=== PATIENT | female | born 1955 | race Caucasian/White ===

== ENCOUNTER 2018-10-07 13:31 | Emergency (ER) | payer OTHER, MEDICAID ==
--- NOTE | 2018-10-07 13:38 | EDPHY ---
H & P Time Seen by Provider: 10/07/18 13:37 HPI/ROS: CHIEF COMPLAINT: Anterior neck discomfort HISTORY OF PRESENT ILLNESS: This is a 63-year-old female with a complex medical history that includes chronic demyelinating inflammatory polyneuropathy for which she is receiving IV IG infusions. 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 She receives IVIG every 3 weeks. She received her 6th infusion yesterday. She typically experiences flushing, sometimes jaw pain related similar to her TMJ, and leg cramps with and after these infusions. However, last evening she noted throat pain and some pain in her anterior chest. Both of these sensations are located in the region of her sternal notch. She has not had chest pain. She does feel that she is somewhat short of breath but points out that this has been longstanding. She has been short of breath with exertion for some time and has been undergoing an outpatient evaluation of this problem. To date, her evaluation has included a CT scan of the chest (without IV contrast per her report) that was performed last month, pulmonary function testing, bilateral lower extremity ultrasounds performed last week, and referral to a economic specialist (she has not yet seen the economic specialist). She has not had chest pain. She has no pain with deep breathing. She denies cough or fever. REVIEW OF SYSTEMS: A ten system review of systems was performed and is negative with the exception of the items mentioned in the HPI. Past medical history: 1. 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 Lichen sclerosis 5. Graves disease in remission 6. Anxiety 7. Sleep apnea on CPAP 8. Migraines 10. Bernadette Danlos 11. PTSD 12. Chronic regional pain syndrome This past medical history is provided from the patient and differes somewhat from what is found in her records. Her records state that she has scleroderma, which she denies. Her records also mention dissociative identity disorder. She states that she has PTSD and anxiety but does not mention dissociated of identity disorder. Past surgical history: Cataract surgery Family history: Bernadette Danlos Social history: She is here with her daughter. She does not use tobacco or alcohol. She is disabled. She is . General Appearance: Alert. Vital signs reviewed. Blood pressure 134/74. Eyes: Pupils equal and round, no conjunctival injection, no discharge. Anicteric. ENT, Mouth: Mucous membranes are moist, no oropharyngeal erythema or edema. Neck: No lymphadenopathy, supple. Respiratory: Lungs are clear to auscultation; no wheezes, rales, or rhonchi. Cardiovascular: Regular rate and rhythm; no murmur, rub, or gallop. Gastrointestinal: Abdomen is soft and nontender, no masses or organomegaly, bowel sounds normal. Skin: Warm and dry, no rashes on exposed skin, normal color. Back: Nontender to palpation over the thoracolumbar spine. No CVAT. Extremities: No lower extremity edema, no calf tenderness or swelling. Neurological: Alert and oriented. Moving all four extremities easily and equally. Psychiatric: Normal affect. - Medical/Surgical History Hx Asthma: No Hx Chronic Respiratory Disease: No Hx Diabetes: No Hx Cardiac Disease: No Hx Renal Disease: No Hx Cirrhosis: No Hx Alcoholism: No Hx HIV/AIDS: No Hx Splenectomy or Spleen Trauma: No Other PMH: crps/bernadette-danlos - Social History Smoking Status: Never smoked Constitutional: Initial Vital Signs Temperature (C) 36.5 C 10/07/18 13:37 Heart Rate 79 10/07/18 13:37 Respiratory Rate 16 10/07/18 13:37 Blood Pressure 134/74 H 10/07/18 13:37 O2 Sat (%) 96 10/07/18 13:37 O2 Delivery Mode Room Air Allergies/Adverse Reactions: acetaminophen [From Vicodin] Allergy (Verified 07/16/16 19:53) epinephrine Allergy (Verified 10/07/18 13:43) fluticasone [From Flonase] Allergy (Verified 10/07/18 13:43) hydrocodone bitartrate [From Vicodin] Allergy (Verified 07/16/16 19:53) Penicillins Allergy (Verified 07/16/16 19:53) shellfish derived Allergy (Verified 10/07/18 13:48) sodium lauryl sulfate Allergy (Verified 10/07/18 13:44) Home Medications: Medication Instructions Recorded Oxycontin 03/26/16 Cromolyn Sodium 10/07/18 Diclofenac 0.1% 10/07/18 Ketotifen Fumarate 10/07/18 LACTULOSE 10/07/18 LORazepam 10/07/18 Triamcinolone 0.025% Ointment (*) 10/07/18 predniSONE 20 mg PO BID #6 tablet 10/07/18 Medical Decision Making ED Course/Re-evaluation: Anterior throat or neck discomfort following IVIG injection yesterday. I spoke with Padmini, the midlevel on-call for the patient's physician (Dr. Schmitz). Padmini it spoken with the patient earlier in the day and had recommended emergency department evaluation. There is a risk of PE with IVIG and that was her others main concern. This patient has antiphospholipid syndrome. She takes a daily baby aspirin, no other anticoagulation. She has had longstanding shortness of breath with exertion. Last week she had negative bilateral ultrasounds of her lower extremities. She has had a chest CT, not a CT angiogram as best I can determine. She tells me that pulmonary nodules and elevation of the right hemidiaphragm were noted but she is not aware of any other abnormalities seen on this study. She has been referred to a economic specialist but has not yet seen warm. I do not think that today's symptoms are suggestive of PE. She has no signs of PE. She is not tachypneic, hypoxic, tachycardic, and denies pleuritic chest pain. However, I think that there is a risk of PE in her situation. She and I discussed this at some length. We talked about doing a D-dimer as a screening test with the understanding that if the D-dimer was abnormal a CT angiogram would be recommended. She is not interested in pursuing further studies at this point in time. She understands that the etiology of her pain and subjective dyspnea is not clear at this point. In my conversation with had other she suggested starting prednisone, 20 mg twice daily for 3 days. The patient has taken prednisone in the past following IVIG injections and found very helpful. She would like to start prednisone and is given a prescription for prednisone 20 twice daily x3 days. We reviewed the danger signs that should prompt her to be re-evaluated immediately. Again, she understands that PE remains in the differential and has not been ruled out. She is capable of making her own medical decisions. Given her presentation I think that PE is unlikely, but no definitive studies were performed. I do not suspect an infectious process. I do not think that she is having an allergic reaction with angioedema. I do not suspect esophageal foreign body. I do not suspect heart failure or ACS; I do not think that this is a cardiac problem. Departure - Departure Disposition: Home, Routine, Self-Care Clinical Impression: Dyspnea Qualifiers: Dyspnea type: dyspnea on exertion Qualified Code(s): R06.09 - Other forms of dyspnea Condition: Good Instructions: Shortness of Breath (ED) Additional Instructions: Follow up with Dr. Schmitz's office. If you become acutely more short of breath, have chest pain, pass out, have any new or concerning symptoms--you should be seen again immediately. Referrals: Sharon Mckenzie MD [Primary Care Provider] - As per Instructions Prescriptions: predniSONE 20 mg PO BID #6 tablet
[2018-10-07 15:19] VITALS: BP 123/64
== END 2018-10-07 15:15 | disposition home or self-care (01) ==
LOC: CED 13:31
DX: R06.09 Other forms of dyspnea (principal); G61.81 Chronic inflammatory demyelinating polyneuritis; D89.40 Mast cell activation, unspecified; D68.61 Antiphospholipid syndrome; Z79.82 Long term (current) use of aspirin
CPT/HCPCS: 99283-ER